=== PATIENT | female | born 1990 | race African-American/Black ===

== ENCOUNTER 2018-07-14 22:18 | Emergency (ER) | payer MEDICAID ==
[2018-07-14 22:28] VITALS: BP 115/58
--- NOTE | 2018-07-14 22:50 | ER Document Report ---
ED General - General Chief Complaint: Vaginal Pain Stated Complaint: GREEN URINE,CRAMPING,HEADACHE Time Seen by Provider: 07/14/18 22:32 Primary Care Provider: KENYON BARNETT [Primary Care Provider] - Follow up as needed Notes: Patient is a pleasant 37-year-old female who is approximately 7 weeks . This is her sixth . She has 5 kids at home. Complications with her previous 5 pregnancies. She presents because she says that she has limegreen urine. No fevers. No vomiting. No diarrhea. She says feeling green urine started after she started taking her vitamins. She also feels that she has a UTI even though she does not currently have any dysuria or urinary frequency. She says she has some intermittent cramping into her suprapubic region as well as into her lower back. She currently is not having any pain right now. She says some morning she will also have some epigastric pain. Some nausea but no vomiting. She has not had any care as of yet. Ultrasound yet. No abnormal vaginal discharge. No vaginal bleeding. - Related Data Allergies/Adverse Reactions: Penicillins Allergy (Verified 07/14/18 22:40) Past Medical History - Social History Smoking Status: Current Every Day Smoker Frequency of alcohol use: None Drug Abuse: None Family History: Reviewed & Not Pertinent Patient has suicidal ideation: No Patient has homicidal ideation: No Renal/ Medical History: Denies: Hx Peritoneal Dialysis Review of Systems - Review of Systems Notes: My Normal Review Basic REVIEW OF SYSTEMS: CONSTITUTIONAL : Denies fever, chills, or sweats. Denies recent illness. RESPIRATORY: Denies cough, cold, or chest congestion. Denies shortness of breath, difficulty breathing, or wheezing. GASTROINTESTINAL: Denies abdominal pain. Denies nausea, vomiting, or diarrhea. Denies constipation. Last BM: GENITOURINARY: Denies difficulty urinating, painful urination, burning, frequency, or blood in urine. Green urine. FEMALE GENITOURINARY: Denies vaginal bleeding, abnormal or irregular periods. Currently 7 weeks MUSCULOSKELETAL: Denies neck or back pain or joint pain or swelling. SKIN: Denies rash or skin lesions. NEUROLOGICAL: Denies altered mental status or loss of consciousness. ALL OTHER SYSTEMS REVIEWED AND NEGATIVE. Physical Exam - Vital signs Vitals: Temp Pulse Resp BP Pulse Ox 98.0 F 85 18 115/58 L 100 05/05/19 22:25 07/14/18 22:25 07/14/18 22:25 07/14/18 22:25 07/14/18 22:25 - Notes Notes: General Appearance: Well nourished, alert, cooperative, no acute distress, no obvious discomfort. Well-appearing. Vitals: reviewed, See vital signs table. Eyes: PERRL, EOMI, Conjuctiva clear Mouth: No decreasd moisture Lungs: No wheezing, No rales, No rhonci, No accessory muscle use, good air exchange bilaterally. Heart: Normal rate, Regular rythm, No murmur, no rub Abdomen: Normal BS, soft, No rigidity, mild suprapubic tenderness to palpation. Mild epigastric tenderness to palpation. Remainder of abdomen is nontender., No guarding, no rebound, no abdominal masses, no organomegaly Back: Negative Rashad sign bilaterally. Extremities: good pulses in all extremities, no swelling or tenderness in the extremities, no edema. Skin: warm, dry, appropriate color, no rash Neuro: speech clear, oriented x 3, normal affect, responds appropriately to questions. Course - Re-evaluation Re-evalutation: 07/15/18 00:31 Nurse informed me that the patient had walked out the ER. They are waiting for her to come back but she never came back. Patient eloped. Patient did not get her ultrasound. Her urinalysis did not show evidence of infection. Patient did not ask to speak to me or the nurse before she eloped. She apparently just left without telling anybody. Dictation of this chart was performed using voice recognition software; therefore, there may be some unintended grammatical errors. - Vital Signs Vital signs: Temp Pulse Resp BP Pulse Ox 98.0 F 85 18 115/58 L 100 07/14/18 22:25 07/14/18 22:25 07/14/18 22:25 07/14/18 22:25 07/14/18 22:25 - Laboratory Laboratory results interpreted by me: 07/14/18 07/14/18 22:47 22:50 Beta HCG, Quant [id number] H Ur Leukocyte Esterase TRACE H Discharge - Discharge Clinical Impression: Qualifiers: Weeks of gestation: unspecified Qualified Code(s): Z34.90 - Encounter for supervision of normal , unspecified, unspecified trimester Abdominal pain Qualifiers: Abdominal location: epigastric Qualified Code(s): R10.13 - Epigastric pain Condition: Fair Disposition: ELOPED Referrals: LOCALMD,NO [Primary Care Provider] - Follow up as needed
[2018-07-14 23:12] LABS: AMORPHOUS SEDIMENT,URINE TRACE /HPF; APPEARANCE,URINE CLOUDY; BILIRUBIN,URINE NEGATIVE (NEGATIVE); COLOR,URINE YELLOW; GLUCOSE, URINE NEGATIVE (NEGATIVE); KETONES,URINE NEGATIVE (NEGATIVE); LEUKOCYTE ESTERASE,URINE TRACE (NEGATIVE); NITRITE,URINE NEGATIVE (NEGATIVE); PROTEIN,URINE NEGATIVE (NEGATIVE); URINE SPECIFIC GRAVITY 1.017; UROBILINOGEN,URINE NEGATIVE mg/dL (<2.0)
== END 2018-07-14 23:45 | disposition left against medical advice (07) ==
LOC: ER 22:18
DX: O26.891 Other specified pregnancy related conditions, first trimester (principal); R10.13 Epigastric pain; R10.2 Pelvic and perineal pain; R51 Headache; Z3A.01 Less than 8 weeks gestation of pregnancy; F17.200 Nicotine dependence, unspecified, uncomplicated
CPT/HCPCS: 36415; 81001; 84702; 87086; 87088; 87186; 99283